=== PATIENT | female | born 1935 | race Caucasian/White ===

== ENCOUNTER 2025-04-05 00:08 | Inpatient (IN) | payer MEDICARE ==
[2025-04-05 01:17] LABS: #Basophils Less than 0.03 10x3/uL (0.0-0.2); #Eosinophils 0.07 10x3/uL (0.0-0.7); #Monocytes 1.56 10x3/uL (0.11-0.59); #Neutrophils 8.39 10x3/uL (1.40-6.50); %Basophils 0.2 % (0.0-1.0); %Eosinophils 0.6 % (0.0-10.0); %Lymphocytes 13.7 % (21.0-51.0); %Monocytes 13.3 % (0.0-10.0); %Neutrophils 71.6 % (42.0-75.0); Hematocrit 34.3 % (36.0-47.0); Hemoglobin 11.6 g/dL (12.0-16.0); Mean Corpuscular Hemoglobin 28.0 pg (27.0-31.0); Mean Corpuscular Volume 82.9 fL (78.0-98.0); Platelet Count 332 10x3/uL (130-400); Red Blood Cell (RBC) Count 4.14 mill/uL (4.20-5.40); White Blood Cell (WBC) Count 11.71 10x3/uL (4.8-10.8)
[2025-04-05 01:31] LABS: ALT (SGPT) 31 U/L (Less than 34); AST (SGOT) 59 U/L (11-34); Albumin 2.6 g/dL (3.1-4.5); Alkaline Phosphatase 58 U/L (40-110); Anion Gap 14 mmol/L (10-20); BUN (Urea Nitrogen) 34 mg/dL (9.8-20.1); Bilirubin, Total 0.6 mg/dL (0.3-1.2); Calc. Creatinine Clearance 0 mL/min (70-130); Calcium 8.0 mg/dL (7.8-10.44); Carbon Dioxide 22 mmol/L (23-31); Chloride 85 mmol/L (98-107); Globulin 2.9 g/dL (2.4-3.5); Glucose 118 mg/dL (83-110); Potassium 4.1 mmol/L (3.5-5.1); Sodium 117 mmol/L (136-145)
[2025-04-05 02:50] LABS: Anion Gap 15 mmol/L (10-20); BUN (Urea Nitrogen) 36 mg/dL (9.8-20.1); Calc. Creatinine Clearance 0 mL/min (70-130); Calcium 8.2 mg/dL (7.8-10.44); Carbon Dioxide 22 mmol/L (23-31); Chloride 85 mmol/L (98-107); Glucose 117 mg/dL (83-110); Potassium 4.3 mmol/L (3.5-5.1); Sodium 118 mmol/L (136-145)
[2025-04-05 02:51] LABS: Osmolality, Serum 253 mOsm/kg (280-301)
[2025-04-05 03:10] LABS: Free T4 (Free Thyroxine) 1.52 ng/dL (0.70-1.48); Thyroid Stimulating Hormone 1.0699 uIU/mL (0.35-4.94)
[2025-04-05] MEDS ORDERED: Acetaminophen 325 MG TAB PO PRN (03:14)
[2025-04-05 06:30] LABS: #Basophils Less than 0.03 10x3/uL (0.0-0.2); #Eosinophils 0.04 10x3/uL (0.0-0.7); #Monocytes 1.21 10x3/uL (0.11-0.59); #Neutrophils 7.65 10x3/uL (1.40-6.50); %Basophils 0.2 % (0.0-1.0); %Eosinophils 0.4 % (0.0-10.0); %Lymphocytes 11.9 % (21.0-51.0); %Monocytes 11.9 % (0.0-10.0); %Neutrophils 74.9 % (42.0-75.0); Hematocrit 31.8 % (36.0-47.0); Hemoglobin 10.8 g/dL (12.0-16.0); Mean Corpuscular Hemoglobin 28.2 pg (27.0-31.0); Mean Corpuscular Volume 83.0 fL (78.0-98.0); Platelet Count 288 10x3/uL (130-400); Red Blood Cell (RBC) Count 3.83 mill/uL (4.20-5.40); White Blood Cell (WBC) Count 10.21 10x3/uL (4.8-10.8)
[2025-04-05 06:32] VITALS: BMI 25.9
[2025-04-05 06:46] LABS: Anion Gap 12 mmol/L (10-20); BUN (Urea Nitrogen) 34 mg/dL (9.8-20.1); Calc. Creatinine Clearance 38 mL/min (70-130); Calcium 8.0 mg/dL (7.8-10.44); Carbon Dioxide 25 mmol/L (23-31); Chloride 87 mmol/L (98-107); Glucose 111 mg/dL (83-110); Magnesium 1.9 mg/dL (1.6-2.6); Potassium 4.4 mmol/L (3.5-5.1); Sodium 120 mmol/L (136-145)
[2025-04-05 06:53] LABS: ALT (SGPT) 30 U/L (Less than 34); AST (SGOT) 47 U/L (11-34); Albumin 2.5 g/dL (3.1-4.5); Alkaline Phosphatase 52 U/L (40-110); Anion Gap 12 mmol/L (10-20); BUN (Urea Nitrogen) 34 mg/dL (9.8-20.1); Bilirubin, Total 0.5 mg/dL (0.3-1.2); Calc. Creatinine Clearance 40 mL/min (70-130); Calcium 8.0 mg/dL (7.8-10.44); Carbon Dioxide 25 mmol/L (23-31); Chloride 86 mmol/L (98-107); Globulin 2.7 g/dL (2.4-3.5); Glucose 112 mg/dL (83-110); Potassium 4.3 mmol/L (3.5-5.1); Sodium 119 mmol/L (136-145)
[2025-04-05 07:58] LABS: Osmolality, Urine 614 mOsm/kg (50-1200)
[2025-04-05 08:43] LABS: Bacteria/HPF 2+ HPF (None Seen); CAUTI Indications for Culture Alt mental st,lethar; Glucose, Urine (Dipstick) Normal (Negative); Leukocyte 250 Leu/uL (Negative); Protein, Urine (Dipstick) Negative (Neg-Trace)
[2025-04-05] MEDS: Aspirin 81 mg Enteric Coated Tablet PO SCH (08:44)
[2025-04-05] MEDS: Famotidine/PF 20 mg/2ml Vial SLOW IVP SCH (08:44)
[2025-04-05] MEDS: Mupirocin 1 GM TUBE TP SCH (08:44)
[2025-04-05] MEDS: Ondansetron PF 4 MG/2 ML Vial IVP PRN (08:49)
[2025-04-05 08:50] LABS: Specific Gravity, Urine Greater than 1.050 (1.002-1.036)
[2025-04-05 08:51] LABS: Urine Culture Reflex No No
[2025-04-05 10:22] LABS: Osmolality, Serum 255 mOsm/kg (280-301)
[2025-04-05] MEDS: NIFEdipine XL 30 MG ER.TAB PO SCH (11:19)
[2025-04-05 11:29] LABS: Anion Gap 12 mmol/L (10-20); BUN (Urea Nitrogen) 32 mg/dL (9.8-20.1); Calc. Creatinine Clearance 41 mL/min (70-130); Calcium 8.2 mg/dL (7.8-10.44); Carbon Dioxide 24 mmol/L (23-31); Chloride 87 mmol/L (98-107); Glucose 126 mg/dL (83-110); Potassium 4.3 mmol/L (3.5-5.1); Sodium 119 mmol/L (136-145)
[2025-04-05] MEDS ORDERED: Iopamidol-370 76% 500 ML MDV (1 ML CHARGE) ONE (12:15)
[2025-04-05] MEDS: Calcium Carbonate 500 MG ChewTAB PO PRN (14:11)
[2025-04-05] MEDS: cloNIDine 0.1 MG TAB PO PRN (14:11)
[2025-04-05 14:59] LABS: Anion Gap 13 mmol/L (10-20); BUN (Urea Nitrogen) 31 mg/dL (9.8-20.1); Calc. Creatinine Clearance 46 mL/min (70-130); Carbon Dioxide 23 mmol/L (23-31); Chloride 86 mmol/L (98-107); Potassium 4.3 mmol/L (3.5-5.1); Sodium 118 mmol/L (136-145)
[2025-04-05 15:00] LABS: Calcium 8.1 mg/dL (7.8-10.44); Glucose 126 mg/dL (83-110)
[2025-04-05] MEDS: cefTRIAXone\\ROCEPHIN 1 GM in Sodium Chloride 0.9% 100 ML IVPB SCH (18:53)
[2025-04-05] MEDS ORDERED: QUEtiapine 25 MG TAB PO SCH (19:15)
[2025-04-05] MEDS: QUEtiapine 25 MG TAB PO SCH (19:51)
[2025-04-05] MEDS: Melatonin 3 MG TAB PO SCH (19:52)
[2025-04-05] MEDS: cloNIDine 0.1mg/24 Hour PATCH TD SCH ×2 (19:52→20:35)
[2025-04-05] MEDS: Cholecalciferol 1,000 UNITS (25 MCG) TAB PO SCH (19:52)
[2025-04-05] MEDS: Cyanocobalamin (Vitamin B-12) 1,000 MCG TAB PO SCH (19:52)
[2025-04-05] MEDS: Sodium Chloride 256 MEQ in Sterile Water 936 ML IV SCH (20:04)
[2025-04-05] MEDS ORDERED: NIFEdipine XL 30 MG ER.TAB PO SCH (21:00)
[2025-04-05] MEDS ORDERED: metroNIDAZOLE 500 MG TAB PO SCH (21:00)
[2025-04-05 23:35] LABS: Anion Gap 12 mmol/L (10-20); BUN (Urea Nitrogen) 30 mg/dL (9.8-20.1); Calc. Creatinine Clearance 51 mL/min (70-130); Calcium 7.9 mg/dL (7.8-10.44); Carbon Dioxide 20 mmol/L (23-31); Chloride 89 mmol/L (98-107); Glucose 144 mg/dL (83-110); Potassium 4.4 mmol/L (3.5-5.1); Sodium 117 mmol/L (136-145)
[2025-04-06] MEDS: Sodium Chloride 256 MEQ in Sterile Water 936 ML IV SCH
[2025-04-06] MEDS: Furosemide 40 MG (4 mL) VIAL SLOW IVP SCH (00:47)
[2025-04-06 06:01] LABS: #Basophils Less than 0.03 10x3/uL (0.0-0.2); #Eosinophils 0.04 10x3/uL (0.0-0.7); #Monocytes 1.71 10x3/uL (0.11-0.59); #Neutrophils 13.03 10x3/uL (1.40-6.50); %Basophils 0.1 % (0.0-1.0); %Eosinophils 0.3 % (0.0-10.0); %Lymphocytes 6.1 % (21.0-51.0); %Monocytes 10.8 % (0.0-10.0); %Neutrophils 82.0 % (42.0-75.0); Hematocrit 33.2 % (36.0-47.0); Hemoglobin 11.4 g/dL (12.0-16.0); Mean Corpuscular Hemoglobin 28.3 pg (27.0-31.0); Mean Corpuscular Volume 82.4 fL (78.0-98.0); Platelet Count 358 10x3/uL (130-400); Red Blood Cell (RBC) Count 4.03 mill/uL (4.20-5.40); White Blood Cell (WBC) Count 15.88 10x3/uL (4.8-10.8)
[2025-04-06 06:17] LABS: Anion Gap 13 mmol/L (10-20); BUN (Urea Nitrogen) 25 mg/dL (9.8-20.1); Calc. Creatinine Clearance 49 mL/min (70-130); Calcium 8.4 mg/dL (7.8-10.44); Carbon Dioxide 25 mmol/L (23-31); Chloride 88 mmol/L (98-107); Glucose 117 mg/dL (83-110); Magnesium 1.9 mg/dL (1.6-2.6); Potassium 3.9 mmol/L (3.5-5.1); Sodium 122 mmol/L (136-145)
[2025-04-06] MEDS ORDERED: NIFEdipine XL 30 MG ER.TAB PO SCH (09:00)
[2025-04-06] MEDS: Thiamine 100 MG TAB PO SCH (10:10)
[2025-04-06] MEDS: Pantoprazole 40 MG DR.TAB PO SCH (10:18)
[2025-04-06] MEDS: NIFEdipine XL 30 MG ER.TAB PO SCH ×2 (10:18→14:37)
[2025-04-06] MEDS: Multivit, Therapeutic 1 TAB PO SCH (10:18)
[2025-04-06] MEDS: Heparin 5,000 UNITS/ML VIAL SC SCH (10:18)
[2025-04-06 12:38] LABS: Anion Gap 14 mmol/L (10-20); BUN (Urea Nitrogen) 22 mg/dL (9.8-20.1); Calc. Creatinine Clearance 57 mL/min (70-130); Calcium 8.2 mg/dL (7.8-10.44); Carbon Dioxide 22 mmol/L (23-31); Chloride 90 mmol/L (98-107); Glucose 122 mg/dL (83-110); Potassium 3.8 mmol/L (3.5-5.1); Sodium 122 mmol/L (136-145)
[2025-04-06] MEDS ORDERED: Melatonin 3 MG TAB PO PRN (14:15)
[2025-04-06 18:08] LABS: Anion Gap 15 mmol/L (10-20); BUN (Urea Nitrogen) 23 mg/dL (9.8-20.1); Calc. Creatinine Clearance 62 mL/min (70-130); Calcium 8.2 mg/dL (7.8-10.44); Carbon Dioxide 21 mmol/L (23-31); Chloride 91 mmol/L (98-107); Glucose 124 mg/dL (83-110); Potassium 3.9 mmol/L (3.5-5.1); Sodium 123 mmol/L (136-145)
[2025-04-06] MEDS: QUEtiapine 25 MG TAB PO SCH (21:29)
[2025-04-07 04:30] LABS: #Basophils Less than 0.03 10x3/uL (0.0-0.2); #Eosinophils 0.26 10x3/uL (0.0-0.7); #Monocytes 1.33 10x3/uL (0.11-0.59); #Neutrophils 6.84 10x3/uL (1.40-6.50); %Basophils 0.2 % (0.0-1.0); %Eosinophils 2.5 % (0.0-10.0); %Lymphocytes 16.5 % (21.0-51.0); %Monocytes 13.0 % (0.0-10.0); %Neutrophils 66.8 % (42.0-75.0); Hematocrit 27.7 % (36.0-47.0); Hemoglobin 9.3 g/dL (12.0-16.0); Mean Corpuscular Hemoglobin 28.2 pg (27.0-31.0); Mean Corpuscular Volume 83.9 fL (78.0-98.0); Platelet Count 325 10x3/uL (130-400); Red Blood Cell (RBC) Count 3.30 mill/uL (4.20-5.40); White Blood Cell (WBC) Count 10.24 10x3/uL (4.8-10.8)
[2025-04-07 04:43] LABS: Anion Gap 12 mmol/L (10-20); BUN (Urea Nitrogen) 23 mg/dL (9.8-20.1); Calc. Creatinine Clearance 56 mL/min (70-130); Calcium 7.7 mg/dL (7.8-10.44); Carbon Dioxide 23 mmol/L (23-31); Chloride 95 mmol/L (98-107); Glucose 91 mg/dL (83-110); Magnesium 1.9 mg/dL (1.6-2.6); Potassium 3.5 mmol/L (3.5-5.1); Sodium 126 mmol/L (136-145)
[2025-04-07] MEDS: NIFEdipine XL 60 MG ER.TAB PO SCH (08:13)
[2025-04-07] MEDS: Magnesium Oxide 400 MG TAB PO SCH (15:49)
[2025-04-08 08:25] LABS: Anion Gap 13 mmol/L (10-20); BUN (Urea Nitrogen) 19 mg/dL (9.8-20.1); Calc. Creatinine Clearance 60 mL/min (70-130); Calcium 8.0 mg/dL (7.8-10.44); Carbon Dioxide 24 mmol/L (23-31); Chloride 103 mmol/L (98-107); Glucose 103 mg/dL (83-110); Potassium 3.5 mmol/L (3.5-5.1); Sodium 136 mmol/L (136-145)
[2025-04-08 14:53] VITALS: TEMP 97.5
[2025-04-08 14:58] VITALS: BP 149/68
== END 2025-04-08 19:00 | DRG 640 ==
LOC: ERS 00:08 → ERHOLD 03:14 → IMCU/EMU 03:55 → T4-A 04-06 17:42
PROVIDERS: ADMIT Internal Medicine; ATTEND Student in an Organized Health Care Education/Training Program
DX: E87.1 Hypo-osmolality and hyponatremia (principal); G93.41 Metabolic encephalopathy; I21.A1 Myocardial infarction type 2; N17.9 Acute kidney failure, unspecified; Z66 Do not resuscitate; J45.909 Unspecified asthma, uncomplicated; Z98.890 Other specified postprocedural states; N18.2 Chronic kidney disease, stage 2 (mild); I12.9 Hypertensive chronic kidney disease with stage 1 through stage 4 chronic kidney disease, or unspecified chronic kidney disease; E83.42 Hypomagnesemia; B96.20 Unspecified Escherichia coli [E. coli] as the cause of diseases classified elsewhere; N30.90 Cystitis, unspecified without hematuria; I34.0 Nonrheumatic mitral (valve) insufficiency; Z79.899 Other long term (current) drug therapy
CPT/HCPCS: 36415; 36416; 70450; 71045; 71275; 80048; 81001; 82533; 83605; 83735; 83930; 83935; 84100; 84300; 84439; 84443; 84484; 84550; 85025; 85379; 93005; 93306; A4217; J0696; J1308; J1644; J1940; J2405; J7030; J7131; Q9967

== ENCOUNTER 2025-04-17 06:55 | Emergency (ER) | payer MEDICARE ==
[2025-04-17] MEDS ORDERED: Sodium Bicarb 50 MEQ/50 ML Abboject 8.4% SYRINGE ONE (07:01)
[2025-04-17] MEDS ORDERED: EPINEPHrine 1 MG/10 ML Abboject SYRINGE ONE (07:01)
[2025-04-17] MEDS ORDERED: Calcium Chloride 1 GM/10 ML Abboject SYRINGE ONE (07:01)
[2025-04-17] MEDS ORDERED: Norepinephrine 8 MG/0.9% NS 250 ML ONE (07:08)
[2025-04-17] MEDS ORDERED: Magnesium 2 GM/50 ML BAG (IN WATER) ONE (07:12)
[2025-04-17 07:31] LABS: #Basophils 0.06 10x3/uL (0.0-0.2); #Eosinophils 0.16 10x3/uL (0.0-0.7); #Monocytes 0.76 10x3/uL (0.11-0.59); #Neutrophils 3.47 10x3/uL (1.40-6.50); %Basophils 0.8 % (0.0-1.0); %Eosinophils 2.1 % (0.0-10.0); %Lymphocytes 39.9 % (21.0-51.0); %Monocytes 10.0 % (0.0-10.0); %Neutrophils 45.5 % (42.0-75.0); Hematocrit 37.9 % (36.0-47.0); Hemoglobin 11.0 g/dL (12.0-16.0); Mean Corpuscular Hemoglobin 28.1 pg (27.0-31.0); Mean Corpuscular Volume 96.9 fL (78.0-98.0); Platelet Count 418 10x3/uL (130-400); Red Blood Cell (RBC) Count 3.91 mill/uL (4.20-5.40); White Blood Cell (WBC) Count 7.62 10x3/uL (4.8-10.8)
[2025-04-17 07:57] LABS: INR-International Normal Ratio 1.1; Prothrombin Time 14.4 sec (12.0-14.7)
[2025-04-17 07:58] LABS: PTT 29.0 sec (22.9-36.1)
[2025-04-17 08:17] LABS: ALT (SGPT) 20 U/L (Less than 34); AST (SGOT) 39 U/L (11-34); Albumin 2.8 g/dL (3.1-4.5); Alkaline Phosphatase 57 U/L (40-110); Anion Gap 19 mmol/L (10-20); BUN (Urea Nitrogen) 16 mg/dL (9.8-20.1); Bilirubin, Total 0.3 mg/dL (0.3-1.2); CK (CPK) 37 U/L (29-168); Calc. Creatinine Clearance 0 mL/min (70-130); Calcium 8.4 mg/dL (7.8-10.44); Carbon Dioxide 18 mmol/L (23-31); Chloride 106 mmol/L (98-107); Globulin 3.1 g/dL (2.4-3.5); Glucose 210 mg/dL (83-110); Lipase 58 U/L (8-78); Magnesium 3.0 mg/dL (1.6-2.6); Potassium 4.9 mmol/L (3.5-5.1); Sodium 138 mmol/L (136-145)
== END 2025-04-17 07:38 | disposition expired ==
LOC: ERS 06:55
DX: I46.9 Cardiac arrest, cause unspecified (principal); I95.9 Hypotension, unspecified; R00.1 Bradycardia, unspecified; I49.01 Ventricular fibrillation; I12.9 Hypertensive chronic kidney disease with stage 1 through stage 4 chronic kidney disease, or unspecified chronic kidney disease; N18.30 Chronic kidney disease, stage 3 unspecified
CPT/HCPCS: 71045; 82550; 83690; 83735; 83880; 85610; 85730; 93005; 94002; 94760; J0165; J0282; J0461; J3475; 84443; 92950; 96360; 96365; 96368; 96374